=== PATIENT | male | born 1965 | race Caucasian/White ===

== ENCOUNTER 2020-06-13 05:50 | Day surgery (SDC) | payer BC ==
[2020-06-13] MEDS ORDERED: CEFAZOLIN 2 GM-D5W BAG** 2 GM/50 ML ML IV SCH (06:30)
[2020-06-13] MEDS ORDERED: Lactated Ringers 1,000 ML IV SCH (06:30)
[2020-06-13] MEDS ORDERED: SUBLIMAZE 100 MCG/2 ML ONE (06:46)
[2020-06-13] MEDS ORDERED: Versed 2 MG/2 ML Injection ONE (06:46)
[2020-06-13] MEDS ORDERED: DIPRIVAN 200 MG/20 ML IV ONE (06:46)
[2020-06-13] MEDS ORDERED: BUPIVACAINE 0.5% VIAL IJ ONE (07:15)
[2020-06-13] MEDS ORDERED: XYLOCAINE 1% HCL 20 ML MDV ONE (07:15)
[2020-06-13] MEDS ORDERED: Lactated Ringers 1,000 ML IV ONE (07:16)
[2020-06-13 09:06] VITALS: O2SAT 97
[2020-06-13 09:24] VITALS: BP 105/53; PULSE 62
--- NOTE | 2020-06-14 08:59 | OP ---
SURGERY DATE/TIME: 06/13/2020 0658 PREOPERATIVE DIAGNOSES: 1) Chronic wound left foot. 2) Recalcitrant osteomyelitis left hallux. 3) Diabetic foot infection. POSTOPERATIVE DIAGNOSES: 1) Chronic wound left foot. 2) Recalcitrant osteomyelitis left hallux. 3) Diabetic foot infection. PROCEDURE: Partial hallux amputation left foot. SURGEON: Kedar Tinajero DPM. INSPECTOR INTEGRATED CIRCUITS: None. ANESTHESIA: Monitored anesthesia care with local. HEMOSTASIS: None. ESTIMATED BLOOD LOSS: Less than 10 cc. MATERIALS: 2-0 Vicryl, 3-0 Nylon. INJECTABLES: 10 cc total of 1:1 mixture of 0.5% Marcaine plain and 1% lidocaine plain. DESCRIPTION OF PROCEDURE AND FINDINGS: After adequate anesthesia assessment in the preoperative area, the patient was brought into the OR and placed on the OR table in supine position. After adequate sedation was provided by the anesthesia care team, the left foot was prepped and draped in the typical sterile fashion. At this time the lower extremity was lowered onto the surgical field. At this time preoperative injection in a hallux block-type fashion was injected into the left hallux with a mixture of 10 cc total of 1:1 of 0.5% Marcaine plain and 1% lidocaine plain. At this time attention was directed to the ulceration at the plantar aspect of the hallux of the left foot where the wound probed to bone. At this point a skin marker was utilized to plan my incision site which was drawn in a fish mouth-type fashion at the distant extent of the toe so as to salvage as much viable soft tissue from the plantar aspect as well as the dorsal aspect following the amputation. At this point a towel clamp was applied to the distal extent of the toe utilize to manipulate as dissection was taking place. A 15 blade was then utilized to make a perpendicular incision down to bone following the planned fish mouth incision. Following the use of the 15 blade, the soft tissue edges at the proximal extent incision site were undermined so as to create full thickness flaps on both edges and as close to bone as possible. At this point the distal phalanx was disarticulated from the lateral collateral and the medial collateral ligament and the specimen was handed off to the paintless dent repair technician who then the samples for surgical pathology and microbiology. At this point copious amounts of sterile saline were utilized to flush the incision site to inspect the quality of the bone and the cartilage remaining. At this point there was a small amount of erosion at the distal head of the proximal phalanx of the left hallux which decision was made to resect this portion off and also to allow for adequate closure of the wound. This segment was portioned at its proximal extent and this to be sent off as a proximal margin in order to assess if we adequately eliminated the osteomyelitis. All three surgical and microbiological samples were handed off the surgical field at this time and sent for pathological and microbiological assessment. Pulse lavage was utilized to flush the incision site with approximately 1.5 liters of sterile saline under low pressure. The remaining incision surgical site was inspected for any remaining devitalized or infected appearing tissue which at this point we seem to be adequate for primary closure. At this time a 2-0 Vicryl was utilized to coapt the central portion of the incision in subcutaneous fashion and following the edges were then coapted. At this time a 3-0 Nylon was utilized to close down the incision in a vertical mattress-type fashion surrounding the incision site which was alternating horizontal mattress and simple-type in order to create inversion as well as bring the skin edges closer together. At this time a wet lap was utilized to clean the surgical wound and any dog-ears were addressed at this time. Again another wet lap was used to clean the leg and a dry lap was utilized to dry it. Dressing consisting of Betadine paint, Adaptic, 4x4, Kerlix and a 4 inch base was applied to the lower extremity. Intraoperatively the patient was fitted for a surgical shoe which is to wear during the postoperative period. The patient was then reversed from the anesthesia and returned to the postoperative anesthesia care unit with vital signs stable and vascular status intact. The patient handled the anesthesia and procedure well. Postoperative orders as follows: 1) Keep postoperative dressing clean, dry and intact. Do not alter dressings in any way without consulting Dr. Thacker first. Dressing is to remain dry throughout the postoperative course. 2) Elevate operative extremity above the level of the heart to reduce inflammation and pain. Ice behind knee to reduce the amount of inflammation. 3) Partial weight bearing to heel of left foot with the assistance of a surgical shoe this may be taken off for sleep but is to be worn at all other times. 4) Full weight bearing to the nonoperative extremity. 5) Postoperative pain control: Hydrocodone/acetaminophen 5/325 every four to six hours for breakthrough pain alternate with ibuprofen 600 mg every six hours. 6) Postoperative infection prophylaxis: Keflex 500 mg every six hours for ten days. 7) Postoperative deep venous thrombosis prophylaxis: None. If necessary continue aspirin 81 mg p.o. daily until weight bearing. 8) Follow up within one week of procedure. 9) Discharge patient to home.
== END 2020-06-13 09:27 | disposition home or self-care (01) ==
LOC: SDC 05:50
PROVIDERS: ATTEND Podiatrist Foot & Ankle Surgery
DX: E11.69 Type 2 diabetes mellitus with other specified complication (principal); M86.172 Other acute osteomyelitis, left ankle and foot; L08.9 Local infection of the skin and subcutaneous tissue, unspecified; I10 Essential (primary) hypertension; Z79.4 Long term (current) use of insulin; Z79.899 Other long term (current) drug therapy
CPT/HCPCS: 82962; 87070; 87075; 87101; 87116; 87205; 87206; 88304; 88305; 88311; J0690; J2250; J2704; J3010

== ENCOUNTER 2020-11-09 06:29 | Day surgery (SDC) | payer BC ==
[2020-11-09] MEDS ORDERED: XYLOCAINE 1% HCL 20 ML MDV ONE (06:40)
[2020-11-09] MEDS ORDERED: BUPIVACAINE 0.5% VIAL IJ ONE ×2 (06:40→06:41)
[2020-11-09] MEDS ORDERED: Lactated Ringers 1,000 ML IV SCH (07:00)
[2020-11-09] MEDS ORDERED: CEFAZOLIN 2 GM-D5W BAG** 2 GM/50 ML ML IV SCH (07:00)
[2020-11-09] MEDS ORDERED: SUBLIMAZE 100 MCG/2 ML ONE (08:26)
[2020-11-09] MEDS ORDERED: DIPRIVAN 200 MG/20 ML IV ONE (08:26)
[2020-11-09] MEDS ORDERED: Ketamine HCl 50 MG/ML ONE (08:26)
[2020-11-09] MEDS ORDERED: Xylocaine-Mpf 2% 5 Ml Vial ONE (08:26)
[2020-11-09] MEDS ORDERED: Versed 2 MG/2 ML Injection ONE (08:26)
[2020-11-09] MEDS ORDERED: Lactated Ringers 0 ML IV ONE (09:34)
--- NOTE | 2020-11-09 10:29 | OP ---
SURGERY DATE/TIME: 11/09/2020 0826 INDICATION FOR PROCEDURE: The patient is very well known to my service for a chronic nonhealing ulceration that was encountered approximately six months ago to his hallux due to his uncontrolled diabetes. After multiple attempts at limb salvage, the patient opted for amputation of the hallux and has an uncomplicated history at this time. However today he returns with ulceration to the distal tip of the second digit which has resulted in ulceration secondary to his digital contracture and this being the most distal and primary weight bearing surface in the distal aspect of his shoe. The patient understands the wound has been here for a number of months. However, he has not sought out treatment and thought it would likely heal on its own. On inspection earlier this week there were demonstrated positive probe to bone with significant purulent drainage. X-rays did demonstrate a break in the cortex as well as corticolysis at the distal phalanx of the second digit indicating osteomyelitis was present. The patient was informed of this and opted instead of to do six weeks of IV antibiotics and wound care to proceed with amputation at this time in order to give him the quickest possible return to work and at this time I agree. The patient understands all risks, benefits and complications of the procedure. Due to the digital contracture through the remaining digits, we also opted to perform flexor tenotomy of digits 3, 4 and 5 in order to prevent complications of the remaining digit and a recurrence of this issue going forward. The patient understands this and wishes to proceed. PREOPERATIVE DIAGNOSES: 1) Osteomyelitis second digit of the left foot with positive probe to bone. 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 POSTOPERATIVE DIAGNOSES: 1) Osteomyelitis second digit of the left foot with positive probe to bone. 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 PROCEDURES: 1) Partial second toe amputation left foot. 2) Two flexor tenotomies of digits 3, 4 and 5 at the level of the distal interphalangeal joint of the left foot. SURGEON: Kedar Tinajero DPM. TECHNOLOGY INFUSION SPECIALIST: None. ANESTHESIA: MAC plus local. See injectables. HEMOSTASIS: Pressure dressing. ESTIMATED BLOOD LOSS: Less than 20 cc. MATERIALS: 2-0 Vicryl, 3-0 Nylon. INJECTABLES: 18 cc of 1:1 mixture of 1% lidocaine plain and 0.5% Marcaine plain injected into the second, third, fourth and fifth digit in a digital block-type fashion each receiving approximately 2.5 cc on each end. DESCRIPTION OF PROCEDURE AND FINDINGS: Following adequate assessment by the anesthesia care team, the patient was brought into the OR and placed on the OR table in the supine position. At this time light monitored anesthesia care was provided and the patient was sedated. At this time aseptic technique was utilized to perform digital blocks to digits 2, 3, 4 and 5 of the left foot using total of 18 cc of 1:1 mixture of 1% lidocaine plain and 0.5% Marcaine plain. Following this the leg was prepped and draped in the typical sterile fashion with Betadine paint and the surgical extremity was lowered onto the surgical field. At this time attention was directed to the second digit where a fish mouth incision was made at the level of the proximal interphalangeal joint. At this time the dissection was carried down to bone and disarticulation at the proximal phalanx took place. At this time a sagittal saw was utilized to remove the distal aspect of the proximal phalanx in toto and the surgical site was flushed with copious amounts of sterile saline. At this time tendons were removed and all devitalized tissue was resected. Following this closure took place utilizing 2-0 Vicryl and 3-0 Nylon until the skin edges were coapted without any opportunity for dehiscence at the distal wound site and plenty of room for digital contracture. At this time the foot was then prepped again and attention was directed to the third, fourth and fifth digits where there was flexible deformities at the proximal interphalangeal joint. At this time an 11 blade was utilized to make a percutaneous incision at the plantar aspect of this joint and released the flexor tendon at this level. This was tested on a weightbearing surface and deemed to be adequate reduction of digit 3. The same procedure took place for 4 and 5. Following this the foot was dressed with Betadine, Adaptic, 4x4's, Kerlix and SUSI. The patient will be able to ambulate following the procedure in a flat bottom surgical shoe. The patient was notified that the dressing may bleed through and was advised if this does happen to reinforce with additional Kerlix. The patient was reversed from anesthesia and sent to the postoperative anesthesia care unit with vital signs stable and vascular status intact. The patient handled the anesthesia and the procedure without complication. Postoperative orders as indicated in the patient's chart.
[2020-11-09 11:12] VITALS: BP 110/65; PULSE 53; O2SAT 99
== END 2020-11-09 11:00 | disposition home or self-care (01) ==
LOC: SDC 06:29
PROVIDERS: ATTEND Podiatrist Foot & Ankle Surgery
DX: E11.69 Type 2 diabetes mellitus with other specified complication (principal); E11.65 Type 2 diabetes mellitus with hyperglycemia; M86.172 Other acute osteomyelitis, left ankle and foot; E11.621 Type 2 diabetes mellitus with foot ulcer; M24.575 Contracture, left foot; M20.42 Other hammer toe(s) (acquired), left foot; I10 Essential (primary) hypertension; Z79.899 Other long term (current) drug therapy
CPT/HCPCS: 28010; 28825; 82947; 87070; 87075; J0690; J2250; J2704; J3010

== ENCOUNTER 2023-09-17 10:43 | Day surgery (SDC) | payer BC ==
[~2023-09-17 10:43] MED LIST: Marcaine Mpf 0.5% Vial 30 Ml ONE; Xylocaine 1% Vial 30 ML PF IJ ONE
[2023-09-17 11:00] LABS: Hematocrit 41.9 % (42-50); Hemoglobin 13.6 g/dL (12.5-18.0); Mean Cell Volume 86.7 fL (78-100); Mean Corpuscular Hemoglobin 28.2 pg (26-32); Mean Corpuscular Hgb Concent. 32.5 g/dL (32-36); Mean Platelet Volume 9.2 fL (7.5-11.0); Platelet Count 299 x10^3/uL (150-450); Red Blood Count 4.83 x10^6/uL (4.1-5.6); Red Cell Distribution Width 12.1 % (11.5-14.0); White Blood Count 7.7 x10^3/uL (4.0-10.5)
[2023-09-17 11:13] LABS: ALBUMIN 4.7 g/dL (3.5-5.0); ANION GAP 15.1 MEQ/L (5-15); BILIRUBIN,TOTAL 0.8 mg/dL (0.2-1.3); Calcium 10.2 mg/dL (8.4-10.2); Creatinine 1 0.95 mg/dL (0.66-1.25); EST GLOMERULAR FILTRATION RATE 94.5 ML/MIN; Potassium 5.1 mmol/L (3.5-5.1); Total Protein 8.4 g/dL (6.3-8.2)
[2023-09-17 11:15] LABS: INR 0.94 (0.8-3.0); PROTIME 10.3 SECONDS (9.4-12.5); PTT 27.2 SECONDS (25.1-36.5)
[2023-09-17] MEDS ORDERED: Lactated Ringers 1,000 ML IV SCH (12:30)
[2023-09-17] MEDS ORDERED: Sensorcaine 0.25% 10 ML ONE (12:48)
[2023-09-17] MEDS ORDERED: Xylocaine 1% Vial 30 ML PF IJ ONE (12:48)
[2023-09-17] MEDS ORDERED: DAPTOmycin 500 MG in Sodium Chloride Flush 30 ML*** 10 ML IV SCH (13:00)
[2023-09-17] MEDS ORDERED: SUBLIMAZE 100 MCG/2 ML ONE (13:25)
[2023-09-17] MEDS ORDERED: DIPRIVAN 200 MG/20 ML IV ONE (13:25)
[2023-09-17] MEDS ORDERED: Versed 2 MG/2 ML Injection ONE (13:25)
[2023-09-17] MEDS ORDERED: Marcaine Mpf 0.5% Vial 30 Ml ONE (13:39)
--- NOTE | 2023-09-17 14:17 | XRAY ---
Indication: Left 5th toe amputation. Intraoperative fluoroscopy provided for 6 seconds. 2 digital spot images submitted for interpretation ultimately demonstrates amputation entire 5th toe and head 5th metatarsal. Correlate with intraoperative findings/report.
[2023-09-17 14:53] VITALS: RESP 16
[2023-09-17] MEDS ORDERED: Sodium Chloride 0.9% 10 ML FLUSH Syringe PICC PRN (14:54)
[2023-09-17 15:17] VITALS: BP 101/70; PULSE 68; O2SAT 100
[2023-09-17 15:32] VITALS: TEMP 97.5
--- NOTE | 2023-09-17 16:47 | XRAY ---
6 seconds of fluoroscopy was used in surgery for a left 5th toe amputation.
--- NOTE | 2023-09-18 09:38 | OP ---
SURGERY DATE/TIME: 09/17/2023 1347 PREOPERATIVE DIAGNOSES: 1) Diabetic peripheral neuropathy. 2) Diabetic foot wound. 3) Osteomyelitis. 4) Left foot pain. 5) Cellulitis of the left foot. POSTOPERATIVE DIAGNOSES: 1) Diabetic peripheral neuropathy. 2) Diabetic foot wound. 3) Osteomyelitis. 4) Left foot pain. 5) Cellulitis of the left foot. PROCEDURE: Amputation fifth digit left foot with partial metatarsal resection. SURGEON: Kedar Tinajero DPM. DENTAL TECH: None. HEMOSTASIS: Pressure dressing. ANESTHESIA: Monitored anesthesia care. ESTIMATED BLOOD LOSS: Approximately 5 cc. MATERIALS: 3-0 Nylon, 0.25 inch Iodoform packing. INJECTABLES: 10 cc of a 1:1 mixture of 1% lidocaine plain and 0.5% bupivacaine plain injected in a mini-Wan block-type fashion. INDICATION FOR SURGERY: Mitzi is a very pleasant 57-year-old male very well known to my service for multiple amputations to the left lower extremity. The patient at this time had a wound that has been going on for several weeks. He presented to my office with some urgent concern of malodor that was experienced between the fourth and fifth toes this was attempted to be cared for by the patient and his . However, it did seem to get seemingly out of control. As a result, the patient did present and did have a positive probe to bone with some purulent material expressed out of the site and with chronic nature of the wound the patient wished to proceed with amputation given his history of failing conservative wound care and doing well with amputation. The patient was informed of all risks, complications and benefits of surgical intervention at this time including but not limited to infection, hematoma, seroma, possibility of delayed wound healing, nonwound healing, possible residual infection and possible need for surgical intervention at a later date. This is a staged procedure and will likely need to be closed secondary to the infection. The patient has been started on IV daptomycin today. PICC line was placed prior to the procedure. The patient will undergo wound care over the course of the next several days with the goal of proceeding with closure on Thursday of next week if all appears well on Thursday with his first follow up from the surgery. The patient understands these risks and wishes to proceed. No guarantees were provided as to the outcome of surgical intervention. Plenty of time was allowed for questions to be asked which were answered to the patient's apparent satisfaction. At this time we decided to proceed. DESCRIPTION OF PROCEDURE AND FINDINGS: The patient is brought into the OR and placed on the OR table in the supine position. At this time, monitored anesthesia care was administered until the patient was sedated. The left lower extremity is prepped and draped in the typical sterile fashion and lowered onto the surgical field. At this time, a lateral racket incision was made over the lateral aspect of the fifth digit encompassing the wound in the web space. Disarticulating the fifth digit was accomplished utilizing a 15 blade. The incision was carried down the lateral aspect of the foot and a partial section of the metatarsal where there was some softening of the bone at the medial aspect of the metatarsal was encountered. The metatarsal head was resected at this time and handed off the field for pathologic assessment. At this time, Bactisure was utilized to flush the surgical site. 3-0 Nylon was utilized in an [id number] stitch to coapt the skin edges and then Iodine soaked Iodoform packing was then packed into the deficit at the distal aspect. A dressing consisting of Betadine, Adaptic, 4x4, Kerlix and SUSI was then applied to the patient's left lower extremity. The patient was then reversed from anesthesia and returned to the postoperative anesthesia care unit with vital signs stable and vascular status intact. The patient handled the anesthesia as well as the procedure without significant complication. Postoperative orders as indicated in the patient's discharge chart.
== END 2023-09-17 15:30 | disposition home or self-care (01) ==
LOC: SDC 10:43
PROVIDERS: ATTEND Podiatrist Foot & Ankle Surgery
DX: E11.42 Type 2 diabetes mellitus with diabetic polyneuropathy (principal); E11.621 Type 2 diabetes mellitus with foot ulcer; M86.9 Osteomyelitis, unspecified; M79.672 Pain in left foot; L03.116 Cellulitis of left lower limb
CPT/HCPCS: 28810; 36415; 73630; 76000; 80053; 82947; 85027; 85610; 85730; A6260; J0878; J1642; J2001; J2250; J2704; J3010

== ENCOUNTER 2023-09-22 06:09 | Day surgery (SDC) | payer BC ==
[2023-09-22] MEDS ORDERED: Lactated Ringers 1,000 ML IV SCH (06:30)
[2023-09-22 06:43] LABS: Hematocrit 39.1 % (42-50); Hemoglobin 12.8 g/dL (12.5-18.0); Mean Cell Volume 85.7 fL (78-100); Mean Corpuscular Hemoglobin 28.1 pg (26-32); Mean Corpuscular Hgb Concent. 32.7 g/dL (32-36); Mean Platelet Volume 9.1 fL (7.5-11.0); Platelet Count 291 x10^3/uL (150-450); Red Blood Count 4.56 x10^6/uL (4.1-5.6); Red Cell Distribution Width 12.1 % (11.5-14.0); White Blood Count 13.3 x10^3/uL (4.0-10.5)
[2023-09-22 06:56] LABS: ALBUMIN 4.3 g/dL (3.5-5.0); ANION GAP 12.3 MEQ/L (5-15); BILIRUBIN,TOTAL 0.7 mg/dL (0.2-1.3); Calcium 9.8 mg/dL (8.4-10.2); Creatinine 1 1.04 mg/dL (0.66-1.25); EST GLOMERULAR FILTRATION RATE 84.8 ML/MIN; Potassium 4.6 mmol/L (3.5-5.1); Total Protein 7.9 g/dL (6.3-8.2)
[2023-09-22 06:57] VITALS: RESP 18
[2023-09-22 07:00] LABS: INR 0.94 (0.8-3.0); PROTIME 10.3 SECONDS (9.4-12.5); PTT 28.8 SECONDS (25.1-36.5)
[2023-09-22] MEDS ORDERED: Lactated Ringers 1,000 ML IV ONE (08:12)
[2023-09-22] MEDS ORDERED: Xylocaine 1% Vial 30 ML PF IJ ONE (08:12)
[2023-09-22] MEDS ORDERED: Marcaine Mpf 0.5% Vial 30 Ml ONE (08:12)
[2023-09-22] MEDS ORDERED: DIPRIVAN 200 MG/20 ML IV ONE ×2 (09:06→09:20)
[2023-09-22] MEDS ORDERED: SUBLIMAZE 100 MCG/2 ML ONE (09:06)
[2023-09-22] MEDS ORDERED: Versed 2 MG/2 ML Injection ONE (09:06)
[2023-09-22] MEDS ORDERED: PHENYLEPHRINE HCL ONE (09:26)
[2023-09-22 11:10] VITALS: BP 105/65; PULSE 72; TEMP 97.9; O2SAT 99
--- NOTE | 2023-09-22 11:38 | XRAY ---
Indication: Left partial 5th metatarsal amputation. Intraoperative fluoroscopy provided for 1 second. 2 digital spot images submitted for interpretation demonstrates amputation 5th toe and mid to distal 5th metatarsal. Correlate with intraoperative findings/report.
--- NOTE | 2023-09-22 16:57 | XRAY ---
One second of fluoroscopy was used in surgery for a left partial 5th metatarsal amputation.
--- NOTE | 2023-09-23 11:52 | OP ---
SURGERY DATE/TIME: 09/22/2023 0903 PREOPERATIVE DIAGNOSES: 1) Osteomyelitis left foot. 2) Diabetic foot ulcer. 3) Peripheral neuropathy. 4) Controlled diabetes mellitus. 5) History of multiple amputations left foot. POSTOPERATIVE DIAGNOSES: 1) Osteomyelitis left foot. 2) Diabetic foot ulcer. 3) Peripheral neuropathy. 4) Controlled diabetes mellitus. 5) History of multiple amputations left foot. PROCEDURES: 1) Partial resection of fifth metatarsal. 2) Abductor digiti minimi muscle flap. 3) Delayed primary closure. SURGEON: Kedar Tinajero DPM. LEGAL FINANCIAL SPECIALIST: None. ANESTHESIA: Monitored anesthesia care with an intraoperative local block. HEMOSTASIS: Pressure dressing. ESTIMATED BLOOD LOSS: Approximately 5 cc. MATERIALS: 3-0 Nylon, 2-0 Nylon, Suturegard, 2-0 Vicryl, 4-0 Monocryl. INJECTABLES: 10 cc of a 1:1 mixture of 1% lidocaine plain and 0.5% bupivacaine plain injected in a mini-Wan block-type fashion. INDICATION FOR SURGERY: Mitzi is a very pleasant 57-year-old male who presented to my office the day before surgical intervention for the index procedure for this with a web space ulcer that probed directly to the bone with soft bone quality. The patient indicates that it had been there for some time however he had ignored it to some extent. As a result the patient understood that given the purulence and the amount of infection and cellulitis that was occurring he needed an urgent visit. The patient was brought into our care. The wound was inspected and options were discussed. The patient opted for the option that would get him back to work as quickly as possible as he financially relies on his job. From that standpoint the decision was made for an amputation of the fifth digit as well as the fifth metatarsal. From that standpoint the wound did appear to be infected and there was some residual purulence at the medial aspect of the fifth metatarsal head and decision was made to leave that open for a couple of days with packing. At this time, the wound appears to be doing well without indications of purulence and the cellulitis is all but resolved. The patient, I do believe, is ready for a closure in order to prevent a dehiscence from leading to further osteomyelitis. The decision was made to perform an abductor digiti minimi flap as well as resect more bone for clean margins. From this standpoint, the patient understands all risks, complications and benefits of surgical intervention at this time including but not limited to infection, hematoma, seroma, possibility of delayed wound healing, nonwound healing, possibility of failure of surgical intervention, possible need for further amputation at a later date. No guarantees were provided as to the outcome. It is at this time we decided to proceed. DESCRIPTION OF PROCEDURE AND FINDINGS: The patient is brought into the OR and placed on the OR table in the supine position. At this time, monitored anesthesia care was administered until the patient was sedated. Following this, the left lower extremity is prepped and draped in the typical sterile fashion and lowered onto the surgical field. Surgical stitches were removed at this time. A 10 cc injection of 1:1 mixture of 1% lidocaine plain and 0.5% bupivacaine plain was injected in a mini-Wan block to the left lower extremity. Following this, the incision was reopened along this plane down to base of the fifth metatarsal. The fifth metatarsal was resected further approximately 1 cm further. Following this, this was handed off the field for pathologic assessment. At this time copious amounts of sterile saline were utilized through Pulsavac to flush the surgical site. Wound edges were incised to check for healthy bleeding along the edge of the wound. Following this, the abductor digiti minimi was harvested from the plantar aspect of the flap of the wound this flap was then elevated and sutured to the dorsal aspect of the periosteum of the fifth metatarsal to add bulk, reduce pressure to this area, increase vascularity and if indication of dehiscence protect it from further infection into the bone. From that standpoint, one suture utilizing 2-0 Vicryl, 4-0 Monocryl was then utilized to coapt the subcutaneous edges of the skin in a simple buried interrupted-type fashion and then 3-0 Nylon was utilized in a horizontal mattress-type fashion to elise the skin edges. At the base of the fourth toe, the incision had to be elongated in order to get the tension off of it down the lateral aspect of the fourth toe. A Suturegard was utilized to help reduce tension with 2-0 Nylon in a simple interrupted to assist in keeping the tension off of this structure. From that standpoint, a dressing consisting of Betadine, Adaptic, 4x4, Kerlix and SUSI was then applied to the patient's left lower extremity with the foot orthogonal relative to longitudinal axis of the leg. The patient was reversed from anesthesia and returned to the postoperative anesthesia care unit with vital signs stable and vascular status intact. The patient handled the anesthesia as well as the procedure without significant complication. Postoperative orders as indicated in the patient's discharge chart.
== END 2023-09-22 11:15 | disposition home or self-care (01) ==
LOC: SDC 06:09
PROVIDERS: ATTEND Podiatrist Foot & Ankle Surgery
DX: M86.9 Osteomyelitis, unspecified (principal); E11.621 Type 2 diabetes mellitus with foot ulcer; E11.42 Type 2 diabetes mellitus with diabetic polyneuropathy; Z89.422 Acquired absence of other left toe(s)
CPT/HCPCS: 13160; 15738; 28122; 36415; 73630; 76000; 80053; 85027; 85610; 85730; J2001; J2250; J2371; J2704; J3010

== ENCOUNTER 2025-01-10 05:49 | Day surgery (SDC) | payer BC ==
[2025-01-10] MEDS ORDERED: Xylocaine 1% Vial 30 ML PF IJ ONE (05:50)
[2025-01-10] MEDS ORDERED: Marcaine Mpf 0.5% Vial 30 Ml IJ ONE (05:50)
[2025-01-10] MEDS: Lactated Ringers 1,000 ML IV SCH (06:17)
[2025-01-10] MEDS: CEFAZOLIN 2 GM/100 ML NaCl 2 GM/100 ML IVPB IV SCH (06:17)
[2025-01-10 06:29] VITALS: RESP 16
[2025-01-10] MEDS ORDERED: propofoL IV ONE ×2 (07:03→07:21)
[2025-01-10] MEDS ORDERED: Versed 2 MG/2 ML Injection ONE (07:03)
[2025-01-10] MEDS ORDERED: SUBLIMAZE 100 MCG/2 ML ONE (07:03)
[2025-01-10 08:28] VITALS: O2SAT 99
[2025-01-10 08:46] VITALS: BP 104/64; PULSE 57
[2025-01-10 08:57] VITALS: TEMP 97.1
--- NOTE | 2025-01-11 07:46 | OP ---
SURGERY DATE/TIME: 01/10/2025 5601-2539 PREOPERATIVE DIAGNOSES: 1) Right distal phalanx osteomyelitis. 2) Diabetes mellitus type 2, controlled. 3) Severe diabetic peripheral neuropathy. POSTOPERATIVE DIAGNOSES: 1) Right distal phalanx osteomyelitis. 2) Diabetes mellitus type 2, controlled. 3) Severe diabetic peripheral neuropathy. PROCEDURE: Amputation of right great toe at level of metatarsophalangeal joint. SURGEON: Kedar Tinajero DPM LABORATORY SAMPLE CARRIER: DERICK Delgado, and DAGMAR Diana ANESTHESIA: Monitored anesthesia care with intraoperative local block, Wan block to the right foot. HEMOSTASIS: Pressure dressing ESTIMATED BLOOD LOSS: Approximately 5 mL. MATERIALS: 2-0 Monocryl, 3-0 nylon. INJECTABLES: 16 mL of a 1:1 mixture of 1% lidocaine plain and 0.5% bupivacaine plain injected in a Wan block-type fashion to the right foot. INDICATIONS: The patient is a very pleasant 59-year-old male very well known to my service for repeat osteomyelitis infections to the bilateral lower extremities requiring amputations in almost every instance. The patient has severe peripheral neuropathy and does work as a building and construction manager. As a result of his occupation and the conditions in which he works, he does have a tendency to break down in several areas. Over the years, this has resulted in a breakdown of ulcerations which have not responded to conservative wound care. Given his occupation and given he is provider for his family, he likes to return to work as quickly as possible. An MRI was obtained at this point demonstrating some significant indications of T1 dropout and T2 increased signal, characteristic for osteomyelitis in correlation with the wound to the distal tip of the 1st digit. The patient was provided with options, and the patient would like to return to work as quickly as deemed possible. Options were discussed in regard to treatment which included but were not limited to 6 to 8 weeks of IV antibiotics, wound debridement, possible bone debridement. However, the patient does have adequate blood supply and wishes to return to work as soon as possible. The option of amputation was chosen by the patient, and I am amenable at this time. All risks, complication, and benefits of surgical intervention were discussed including, but not limited to, infection, hematoma, seroma, possibility of delayed wound healing, non-wound healing, possible need for further surgical intervention at a later date. No guarantees were provided as to the outcome of surgical intervention. Plenty of time was allowed for the patient to ask questions which were answered to his apparent satisfaction. It is at this time we decided to proceed. DESCRIPTION OF PROCEDURE AND FINDINGS: The patient was brought into the operating room and placed on the operating room table in the supine position. At this time, monitored anesthesia care was administered until the patient was adequately sedated. Once the patient was sedated, the right lower extremity was prepped and draped in the typical sterile fashion and lowered onto the surgical field. At this time, attention was directed to the medial aspect of the right leg where a medial racquet incision was drawn out utilizing a skin marker first and then a 10-blade was utilized to make an incision down to the level of bone. Once this was carried out, disarticulation took place at the level of the 1st metatarsophalangeal joint, disarticulating the proximal and distal phalanx of the great toe and handing this off the field for pathological assessment. From that standpoint, a small sample of the metatarsal was taken for clean margins. After this, 1000 mL of Bactisure was utilized to flush the surgical site and then 1 L of sterile saline was then utilized to flush the surgical site. Simple buried interrupted 2-0 Monocryl was utilized to coapt the subcutaneous tissue and then 3-0 nylon was utilized in a horizontal mattress-type fashion to coapt the skin edges in an everted-type fashion. Once this was achieved, a dressing consisting of Betadine, Adaptic, 4 x 4, Kerlix, ABD, and Vaughn was applied to the patient's right lower extremity. The patient was then reversed from anesthesia and returned to the postoperative anesthesia care unit with vital signs stable and vascular status intact. The patient handled the anesthesia as well as the procedure without significant complication. Postoperative orders as indicated in the patient's discharge chart.
== END 2025-01-10 08:57 | disposition home or self-care (01) ==
LOC: SDC 05:49
PROVIDERS: ATTEND Podiatrist Foot & Ankle Surgery
DX: M86.9 Osteomyelitis, unspecified (principal); E11.9 Type 2 diabetes mellitus without complications; E11.42 Type 2 diabetes mellitus with diabetic polyneuropathy
CPT/HCPCS: 28820; 82947; 93005; A6260; J0690; J2250; J2704; J3010